=== PATIENT | female | born 1980 | race Caucasian/White ===

== ENCOUNTER 2019-01-25 23:47 | Emergency (ER) | payer BC, SELFPAY ==
[2019-01-26] MEDS ORDERED: KETOROLAC 30 MG/ML INJ ONE (00:42)
--- NOTE | 2019-01-26 01:17 | EDPHYS ---
Physician Documentation [facility] Name: Miguelina Coffman Age: 38 yrs Sex: Female : 1980 Arrival Date: 01/25/2019 Time: 23:52 Bed 7 Private MD: ED Physician Kofi Blackwood HPI: 01/26 01:15 This 38 yrs old Female presents to ER via Ambulatory with complaints of gs Abdominal Pain. 01:15 The patient presents with abdominal pain in the lower abdomen. Onset: The gs symptoms/episode began/occurred acutely, just prior to arrival. Associated signs and symptoms: Pertinent negatives: nausea, vomiting. The symptoms are described as sharp. Severity of pain: At its worst the pain was severe in the emergency department the pain is unchanged. pulled her up by her legs and felt pull in her lower abdomen. 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 - Social history:: Smoking status: Patient/guardian denies using tobacco. - Ebola Screening: : Patient negative for fever greater than or equal to 101.5 degrees Fahrenheit, and additional compatible Ebola Virus Disease symptoms Patient denies exposure to infectious person Patient denies travel to an Ebola-affected area in the 21 days before illness onset No symptoms or risks identified at this time. ROS: 01/26 01:15 All other systems are negative. gs Exam: 01:15 Head/Face: Normocephalic, atraumatic. Eyes: Pupils equal round and reactive to light, gs extra-ocular motions intact. Lids and lashes normal. Conjunctiva and sclera are non-icteric and not injected. Cornea within normal limits. Periorbital areas with no swelling, redness, or edema. ENT: Nares patent. No nasal discharge, no septal abnormalities noted. Tympanic membranes are normal and external auditory canals are clear. Oropharynx with no redness, swelling, or masses, exudates, or evidence of obstruction, uvula midline. Mucous membranes moist. Neck: Trachea midline, no thyromegaly or masses palpated, and no cervical lymphadenopathy. Supple, full range of motion without nuchal rigidity, or vertebral point tenderness. No Meningismus. Chest/axilla: Normal chest wall appearance and motion. Nontender with no deformity. No lesions are appreciated. Cardiovascular: Regular rate and rhythm with a normal S1 and S2. No gallops, murmurs, or rubs. Normal PMI, no JVD. No pulse deficits. Respiratory: Lungs have equal breath sounds bilaterally, clear to auscultation and percussion. No rales, rhonchi or wheezes noted. No increased work of breathing, no retractions or nasal flaring. Back: No spinal tenderness. No costovertebral tenderness. Full range of motion. Skin: Warm, dry with normal turgor. Normal color with no rashes, no lesions, and no evidence of cellulitis. MS/ Extremity: Pulses equal, no cyanosis. Neurovascular intact. Full, normal range of motion. Neuro: Awake and alert, GCS 15, oriented to person, place, time, and situation. Cranial nerves II-XII grossly intact. Motor strength 5/5 in all extremities. Sensory grossly intact. Cerebellar exam normal. Normal gait. 01:15 Constitutional: The patient appears alert, awake, uncomfortable. 01:15 Abdomen/GI: Palpation: moderate abdominal tenderness, in the right lower quadrant and left lower quadrant, rebound tenderness, is not appreciated. Vital Signs: 01/25 23:58 BP 118 / 80; Pulse 71; Resp 18; Temp 97.8; Pulse Ox 97% on R/A; Weight 63.96 kg; Height ed1 5 ft. 0 in. (152.40 cm); Pain 8/10; 01/26 00:30 BP 111 / 74; Pulse 73; Resp 16; Pulse Ox 97% on R/A; lp1 01:37 BP 111 / 67; Pulse 60; Resp 16; Pulse Ox 99% on R/A; Pain 3/10; lp1 01/25 23:58 Body Mass Index 27.54 (63.96 kg, 152.40 cm) ed1 MDM: 00:19 Patient medically screened. gs 01:15 Data reviewed: vital signs, nurses notes. Response to treatment: the patient's symptoms gs have markedly improved after treatment, and as a result, I will discharge patient. Administered Medications: 00:34 Drug: TORadol 30 mg Route: IM; Site: right gluteus; ao 01:38 Follow up: Response: Pain is decreased lp1 Disposition: 01/26/19 01:16 Discharged to Home. Impression: Contusion of abdominal wall. - Condition is Stable. - Discharge Instructions: Contusion. - Medication Reconciliation Form, Thank You Letter, Antibiotic Education, Prescription Opioid Use form. - Follow up: Private Physician; When: 2 - 3 days; Reason: Re-evaluation by your physician. Signatures: Maryse Valdes RN RN ed1 Jhoana Clinton RN RN lp1 Juan Diego Rosas RN RN ao Kofi Blackwood MD MD gs Corrections: (The following items were deleted from the chart) 01:38 01:16 01/26/2019 01:16 Discharged to Home. Impression: Contusion of abdominal wall. lp1 Condition is Stable. Forms are Medication Reconciliation Form, Thank You Letter, Antibiotic Education, Prescription Opioid Use. Follow up: Private Physician; When: 2 - 3 days; Reason: Re-evaluation by your physician. gs
--- NOTE | 2019-01-26 01:17 | ER ---
Nurse's Notes [facility] [place], [place] Name: Miguelina Coffman Age: 38 yrs Sex: Female : 1980 Arrival Date: 01/25/2019 Time: 23:52 Bed 7 Private MD: Diagnosis: Contusion of abdominal wall Presentation: 01/25 23:56 Presenting complaint: Patient states: My and I were playing on the bed and he ed1 yanked me up by my feet and I felt something in my stomach pop and now it really hurts. I just had a tubal ligation 6 weeks ago. Transition of care: patient was not received from another setting of care. Onset of symptoms was January 25, 2019. Risk Assessment: Do you want to hurt yourself or someone else? Patient reports no desire to harm self or others. Initial Sepsis Screen: Does the patient meet any 2 criteria? No. Patient's initial sepsis screen is negative. Does the patient have a suspected source of infection? No. Patient's initial sepsis screen is negative. Care prior to arrival: None. 23:56 Method Of Arrival: Ambulatory ed1 23:56 Acuity: TIM 3 ed1 Triage Assessment: 23:58 General: Appears uncomfortable, Behavior is calm, cooperative. Pain: Complains of pain ed1 in right lower quadrant Pain currently is 8 out of 10 on a pain scale. GI: Abdomen is non-distended, Bowel sounds present X 4 quads. Abd is soft X 4 quads Abdomen is tender to palpation in right lower quadrant. 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 - Social history:: Smoking status: Patient/guardian denies using tobacco. - Ebola Screening: : Patient negative for fever greater than or equal to 101.5 degrees Fahrenheit, and additional compatible Ebola Virus Disease symptoms Patient denies exposure to infectious person Patient denies travel to an Ebola-affected area in the 21 days before illness onset No symptoms or risks identified at this time. Screenin/24 00:27 Abuse screen: Denies threats or abuse. Denies injuries from another. Nutritional ao screening: No deficits noted. Tuberculosis screening: No symptoms or risk factors identified. Fall Risk None identified. Assessment: 00:23 General: Appears in no apparent distress. comfortable, Behavior is calm, cooperative, ao appropriate for age. Pain: Complains of pain in right lower quadrant Pain currently is 8 out of 10 on a pain scale. Quality of pain is described as stabbing. Neuro: Level of Consciousness is awake, alert, Oriented to person, place, time, situation, Appropriate for age Moves all extremities. Full function Speech is normal, Facial symmetry appears normal, Pupils are PERRLA. Cardiovascular: Capillary refill < 3 seconds Patient's skin is warm and dry. Respiratory: Airway is patent Respiratory effort is even, unlabored, Respiratory pattern is regular, symmetrical. GI: Abdomen is round obese. GI: Bowel sounds present X 4 quads. Abd is soft and non tender X 4 quads. : No signs and/or symptoms were reported regarding the genitourinary system. EENT: No signs and/or symptoms were reported regarding the EENT system. Derm: Skin is intact, Skin is pink, warm \T\ dry. normal, Skin temperature is warm. Musculoskeletal: Range of motion: intact in all extremities. 01:37 Reassessment: Patient is alert, oriented x 3, equal unlabored respirations, skin lp1 warm/dry/pink. Patient states feeling better. Patient states symptoms have improved. Vital Signs: 01/25 23:58 BP 118 / 80; Pulse 71; Resp 18; Temp 97.8; Pulse Ox 97% on R/A; Weight 63.96 kg; Height ed1 5 ft. 0 in. (152.40 cm); Pain 8/10; 01/26 00:30 BP 111 / 74; Pulse 73; Resp 16; Pulse Ox 97% on R/A; lp1 01:37 BP 111 / 67; Pulse 60; Resp 16; Pulse Ox 99% on R/A; Pain 3/10; lp1 01/25 23:58 Body Mass Index 27.54 (63.96 kg, 152.40 cm) ed1 ED Course: 01/25 23:52 Patient arrived in ED. es 23:57 Triage completed. ed1 23:58 Arm band placed on. ed1 01/26 00:00 Kofi Blackwood MD is Attending Physician. gs 00:19 Juan Diego Rosas, RN is Primary Nurse. ao 00:27 Patient has correct armband on for positive identification. Pulse ox on. NIBP on. ao 01:37 No provider procedures requiring assistance completed. Patient did not have IV access lp1 during this emergency room visit. Administered Medications: 00:34 Drug: TORadol 30 mg Route: IM; Site: right gluteus; ao 01:38 Follow up: Response: Pain is decreased lp1 Outcome: 01:16 Discharge ordered by . gs 01:37 Discharged to home ambulatory, with friend. lp1 01:37 Condition: good 01:37 Discharge instructions given to patient, Instructed on discharge instructions, follow up and referral plans. Demonstrated understanding of instructions, follow-up care. 01:38 Patient left the ED. lp1 Signatures: Esperanza Arana Erika RN RN ed1 Jhoana Clinton RN RN lp1 Juan Diego Rosas, RN RN ao Kofi Blackwood MD MD
== END 2019-01-26 01:38 | disposition home or self-care (01) ==
LOC: ER 23:47
DX: S30.1XXA Contusion of abdominal wall, initial encounter (principal); X58.XXXA Exposure to other specified factors, initial encounter; Y93.9 Activity, unspecified; Y92.9 Unspecified place or not applicable
CPT/HCPCS: 96372; 99283

== ENCOUNTER 2021-06-10 14:22 | Emergency (ER) | payer BC ==
[2021-06-10 15:29] LABS: Absolute Lymphocytes (CBC) 2.2 K/uL (0.7-4.9); Basophils % 0.6 % (0-1.3); Hematocrit 42.4 % (36.0-45.0); Lymphocytes % 19.3 % (15.3-44.8)
[2021-06-10 15:49] LABS: Albumin 4.5 g/dL (3.4-5.0); Bilirubin Direct 0.1 mg/dL (0-0.2); Bilirubin Total 0.5 mg/dL (0.2-1.0); Potassium 4.1 mmol/L (3.5-5.1); Protein, Total 8.1 g/dL (6.4-8.2)
[2021-06-10 15:53] LABS: Urine Blood Trace-intact (Negative); Urine Glucose Negative (Negative); Urine Protein Negative (Negative); Urine Specific Gravity >=1.030 (1.005-1.030)
[2021-06-10 16:32] LABS: Urine Bacteria <20 /HPF (<20); Urine RBC <5 /HPF (NONE SEEN)
--- NOTE | 2021-06-10 16:47 | RAD REPORT ---
EXAM DESCRIPTION: CTAbdomen Pelvis W Contrast - 06/10/2021 4:30 pm CLINICAL HISTORY: Abdominal pain. ABD PAIN COMPARISON: No comparisons TECHNIQUE: Biphasic CT imaging of the abdomen and pelvis was performed with 100 ml non-ionic IV cont rast. All CT scans are performed using dose optimization technique as appropriate and may include automated exposure control or mA/KV adjustment according to patient size. FINDINGS: The lung bases are clear. The liver, spleen, pancreas, adrenal glands and kidneys are within normal limits. No bowel obstruction, free air, free fluid or abscess. The appendix is normal. Fluid filled large an d small bowel loops are noted. No evidence of significant lymphadenopathy. No suspicious bony findings. IMPRESSION: Fluid-filled small and large bowel loops present which could indicate a nonspecific mild enteritis/colitis. Otherwise, negative study.
--- NOTE | 2021-06-10 17:04 | ER ---
Nurse's Notes [facility] Name: Miguelina Coffman Age: 41 yrs Sex: Female : 1980 Arrival Date: 06/10/2021 Time: 14:25 Bed DIS2 Private MD: Diagnosis: Lower abdominal pain, unspecified Presentation: 06/10 15:04 Chief complaint: Patient states: Lower abdominal pain, radiates to lower back, reports jl7 nausea, denies V/D, reports epigastric burning since this morning, Also reports urinary frequency and suprapubic pressure with urination. Coronavirus screen: At this time, the client does not indicate any symptoms associated with coronavirus-19. Ebola Screen: No symptoms or risks identified at this time. Initial Sepsis Screen: Does the patient meet any 2 criteria? No. Patient's initial sepsis screen is negative. Does the patient have a suspected source of infection? No. Patient's initial sepsis screen is negative. Risk Assessment: Do you want to hurt yourself or someone else? Patient reports no desire to harm self or others. Onset of symptoms was June 10, 2021. 15:04 Method Of Arrival: Ambulatory 7 15:04 Acuity: TIM 3 jl7 Triage Assessment: 15:07 General: Appears in no apparent distress. uncomfortable, Behavior is calm, cooperative, jl7 appropriate for age. Pain: Complains of pain in right lower quadrant and left lower quadrant Pain radiates to low back area Pain currently is 8 out of 10 on a pain scale. Neuro: Level of Consciousness is awake, alert, obeys commands, Oriented to person, place, time, situation. Cardiovascular: Patient's skin is warm and dry. Respiratory: Airway is patent Respiratory effort is even, unlabored, Respiratory pattern is regular, symmetrical. GI: Reports lower abdominal pain, nausea, Patient currently denies diarrhea, vomiting. : Reports urinary frequency. Derm: Skin is pink, warm \T\ dry. 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 - Social history:: Smoking status: Patient denies any tobacco usage or history of. Screenin:17 Abuse screen: Denies threats or abuse. Denies injuries from another. Nutritional jl7 screening: No deficits noted. Tuberculosis screening: No symptoms or risk factors identified. Fall Risk IV access (20 points). Total [place] Fall Scale indicates No Risk (0-24 pts). Assessment: 15:17 Reassessment: ABIMAEL Gallagher in triage assessing pt. jl7 16:41 General: Appears in no apparent distress. comfortable, Behavior is calm, cooperative, ld1 appropriate for age. Pain: Complains of pain in right lower quadrant Pain radiates to left lower quadrant Pain currently is 6 out of 10 on a pain scale. Quality of pain is described as throbbing, Pain began 1 day ago. Is intermittent. Neuro: Level of Consciousness is awake, alert, obeys commands, Oriented to person, place, time, situation. Cardiovascular: Capillary refill < 3 seconds Patient's skin is warm and dry. Respiratory: Airway is patent Respiratory effort is even, unlabored, Respiratory pattern is regular, symmetrical. GI: Abdomen is flat, non-distended. : No signs and/or symptoms were reported regarding the genitourinary system. EENT: No signs and/or symptoms were reported regarding the EENT system. Derm: No signs and/or symptoms reported regarding the dermatologic system. Musculoskeletal: No signs and/or symptoms reported regarding the musculoskeletal system. Vital Signs: 15:04 BP 125 / 79; Pulse 82; Resp 19; Temp 98.4; Pulse Ox 98% ; Weight 63.5 kg; Height 5 ft. jl7 0 in. (152.40 cm); Pain 8/10; 16:41 BP 130 / 77; Pulse 80; Resp 18; Pulse Ox 100% ; ld1 15:04 Body Mass Index 27.34 (63.50 kg, 152.40 cm) jl7 ED Course: 14:25 Patient arrived in ED. as 15:07 Triage completed. jl7 15:07 Arm band placed on right wrist. jl7 15:17 Patient has correct armband on for positive identification. jl7 15:20 Initial lab(s) drawn, by ED staff, sent to lab. Inserted saline lock: 20 gauge in right jl7 antecubital area, using aseptic technique. Blood collected. 15:24 Elliott Simmons PA is PHCP. jr8 15:24 Gilbert Jamison MD is Attending Physician. jr8 16:30 CT Abd/Pelvis - IV Contrast Only In Process Unspecified. EDMS 16:41 No provider procedures requiring assistance completed. ld1 17:03 Rita Emery MD is Referral Physician. jr8 17:16 Akiko Murrell, RN is Primary Nurse. iw Administered Medications: No medications were administered Outcome: 17:03 Discharge ordered by . jr8 17:16 Patient left the ED. iw Signatures: Dispatcher [employer] EDMS Chiara Simmons as Akiko Murrell, OMID RN iw Elliott Simmons PA PA jr8 Elfego Lind RN RN jl7 Sarah Witt RN RN ld1 Corrections: (The following items were deleted from the chart) 15:10 15:04 Chief complaint: Patient states: Lower abdominal pain, radiates to lower back, jl7 reports nausea, denies V/D, reports epigastric burning since this morning jl7 15:20 15:07 LMP N/A - control method jl7 jl7
--- NOTE | 2021-06-10 17:04 | EDPHYS ---
Physician Documentation [facility] Name: Miguelina Coffman Age: 41 yrs Sex: Female : 1980 Arrival Date: 06/10/2021 Time: 14:25 Bed DIS2 Private MD: ELPIDIO Physician Gilbert Jamison HPI: 06/10 15:24 This 41 yrs old Female presents to ER via Ambulatory with complaints of Lower jr8 Abdominal Pain. 15:24 This is a 41-year-old female patient that presented to the emergency room with lower jr8 abdominal pain on the right side radiating to the back and left side. Patient stated that she is also had frequency. Symptoms started today. Denies any vomiting or diarrhea. Denies fevers at this time. Had just recently finished her menstrual cycle.. 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 - Social history:: Smoking status: Patient denies any tobacco usage or history of. ROS: 15:24 Constitutional: Negative for fever, chills, and weight loss. jr8 15:24 Abdomen/GI: Positive for abdominal pain, nausea, Negative for vomiting, diarrhea, constipation, abdominal cramps, abdominal distension. 15:24 : Positive for urinary symptoms, urinary frequency. 15:24 All other systems are negative. Exam: 15:24 Constitutional: This is a well developed, well nourished patient who is awake, alert, jr8 and in no acute distress. Cardiovascular: Regular rate and rhythm with a normal S1 and S2. No gallops, murmurs, or rubs. Normal PMI, no JVD. No pulse deficits. Respiratory: Lungs have equal breath sounds bilaterally, clear to auscultation and percussion. No rales, rhonchi or wheezes noted. No increased work of breathing, no retractions or nasal flaring. Back: No spinal tenderness. No costovertebral tenderness. Full range of motion. Skin: Warm, dry with normal turgor. Normal color with no rashes, no lesions, and no evidence of cellulitis. MS/ Extremity: Pulses equal, no cyanosis. Neurovascular intact. Full, normal range of motion. Neuro: Awake and alert, GCS 15, oriented to person, place, time, and situation. Cranial nerves II-XII grossly intact. Motor strength 5/5 in all extremities. Sensory grossly intact. 15:24 Abdomen/GI: Inspection: abdomen appears normal, Bowel sounds: active, all quadrants, Palpation: soft, in all quadrants, mild abdominal tenderness, in the suprapubic area and right lower quadrant, mass, is not appreciated, rebound tenderness, is not appreciated, voluntary guarding, is not appreciated, involuntary guarding, is not appreciated, no appreciated organomegaly, Indicators: McBurney's point is not tender, Solorzano's sign is negative, Rovsing's sign is negative, Liver: tenderness, is not appreciated. Vital Signs: 15:04 BP 125 / 79; Pulse 82; Resp 19; Temp 98.4; Pulse Ox 98% ; Weight 63.5 kg; Height 5 ft. jl7 0 in. (152.40 cm); Pain 8/10; 16:41 BP 130 / 77; Pulse 80; Resp 18; Pulse Ox 100% ; ld1 15:04 Body Mass Index 27.34 (63.50 kg, 152.40 cm) jl7 MDM: 16:02 Patient medically screened. jr8 17:01 Data reviewed: vital signs, nurses notes, lab test result(s), radiologic studies, CT jr8 scan. Data interpreted: Pulse oximetry: on room air is 100 %. Interpretation: normal. Counseling: I had a detailed discussion with the patient and/or guardian regarding: the historical points, exam findings, and any diagnostic results supporting the discharge/admit diagnosis, lab results, radiology results, the need for outpatient follow up, a family practitioner, a master [employer], to return to the emergency department if symptoms worsen or persist or if there are any questions or concerns that arise at home. ED course: Discussed with patient that labs not show any concerning finding at this time. CT had nonspecific small and large bowel dilated loops. Could be consistent with a enteritis or mild colitis. Patient has not had any diarrhea or bloody stools. Patient denies any fever has been hemodynamically stable and afebrile here. Recommended to her that we put her on some nausea medicine and some Bentyl at this time and to give it a few more days. If she were to worsen at any point time or have other symptom involvement come back for reevaluation. Otherwise would like her to see gastroenterology at this time. Patient good with this plan and will follow up.. 06/10 15:15 Order name: Basic Metabolic Panel; Complete Time: 16:02 7 06/10 15:15 Order name: CBC with Diff; Complete Time: 16:02 7 06/10 15:15 Order name: Hepatic Function; Complete Time: 16:02 7 06/10 15:15 Order name: Lipase; Complete Time: 16:02 7 06/10 15:15 Order name: Urine Microscopic Only; Complete Time: 16:51 7 06/10 15:53 Order name: Urine Dipstick-Ancillary; Complete Time: 16:02 EDMS 06/10 15:15 Order name: IV Saline Lock; Complete Time: 15:16 7 06/10 15:15 Order name: Labs collected and sent; Complete Time: 15:16 7 06/10 15:15 Order name: Urine Dipstick-Ancillary (obtain specimen); Complete Time: 16:05 [facility] 06/10 15:54 Order name: Urine --Ancillary (enter results) bd 06/10 16:03 Order name: CT Abd/Pelvis - IV Contrast Only; Complete Time: 16:51 jr8 Administered Medications: No medications were administered Disposition: 06/11 07:51 Co-signature as Attending Physician, Gilbert Jamison MD I agree with the assessment and alex plan of care. Disposition Summary: 06/10/21 17:03 Discharge Ordered Location: Home jr Problem: new jr8 Symptoms: have improved jr8 Condition: Stable jr8 Diagnosis - Lower abdominal pain, unspecified jr8 Followup: jr8 - With: Rita Emery MD - When: 5 - 6 days - Reason: Recheck today's complaints, Continuance of care, Re-evaluation by your physician Discharge Instructions: - Discharge Summary Sheet jr8 - Abdominal Pain, Adult jr8 Forms: - Medication Reconciliation Form jr8 - Thank You Letter jr8 - Antibiotic Education jr8 - Prescription Opioid Use jr8 Prescriptions: - Zofran 4 mg Oral Tablet - take 1 tablet by ORAL route every 12 hours As needed; 20 tablet; Refills: 0, jr8 Product Selection Permitted - dicyclomine 20 mg Oral Tablet - take 1 tablet by ORAL route 3 times per day As needed; 21 tablet; Refills: 0, jr8 Product Selection Permitted Signatures: Dispatcher [employer] Gilbert Huffman MD MD cha Roszak, Josh, PA PA jr8 Elfego Lind RN RN jl7
[2021-06-10 17:20] VITALS: TEMP 98.4
[2021-06-10 17:22] VITALS: BP 130/77; O2SAT 100
== END 2021-06-10 17:16 | disposition home or self-care (01) ==
LOC: ER 14:22
DX: R10.31 Right lower quadrant pain (principal)
CPT/HCPCS: 85025; 80048; 36415; 81025; 80076; 83690; 74177; 99283; Q9967; 81003; 81015

== ENCOUNTER 2022-01-25 16:40 | Emergency (ER) | payer BC, SELFPAY ==
--- OUTSIDE RECORDS SUMMARY | 2022-01-25 16:43 | XMS REPORT | Continuity of Care Document ---
:1980 Author Organization [facility] t Address [address] [place] [address] Care Team Providers Name Role Phone LANEDiamond Primary Care Physician Unavailable Tomás MCKEON S Attending Clinician Lanny SOW Attending Clinician Unavailable Doctor Unassigned, Name Attending Clinician Unavailable Lab, Fam Pob I Attending Clinician Unavailable Nila EMBEDDED SOFTWARE DESIGN ENGINEER Attending Clinician NILA Attending Clinician Unavailable Lab, Covid Attending Clinician Unavailable Payers Payer Name Policy Type Policy Number Effective Date Expiration Date S ource Problems Condition Condition Condition Status Onset Resolution Last Treating Co mments Source Name Details Category Date Date Treatment Clinician Date 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 Unive rs glandular glandular 0-15 ity [place] Med[place] of cervix of cervix Bran ch BMI BMI Disease Active 2017-09 Univers 25.0-25.9, 25.0-25.9, 0-15 it y of adult adult 00:00: [place] 00 Medical Branch Encounter Encounter Disease Active 2017-09 Uni vers for for 0-15 [place] maxim [place] 00 Medical management management Br anch , , unspecifie unspecifie d type d type Papanicola Papanicola Disease Active U nivers ou smear ou smear 6-29 [place] of [place] 00 Med[place] l grade 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 [place] Alcohol Std Drinks Medica l Branch History [facility] [place] Alcohol Binge Medical [facility] Exposure to Not sure [facility] SARS-CoV-2 (event) Medica l Branch Alcohol intake 2018-06-19 2018-06-19 0 /d [facility] 00:00:00 00:00:00 Medical Branch Tobacco use and 2016-03-03 2016-03-03 Never used [facility] exposure 00:00:00 00:00:00 Medical Branch Alcohol Comment 2016-03-03 2016-03-03 socially [facility] 00:00:00 00:00:00 Medical Branch Sex Ass[birth year] At [birth year] [facility] 00:00:00 00:00:00 Medical Branch Smoking Status Start Date Stop Date Source Never smoker [facility] Medications Ordered Filled Start Stop Current Ordering Indication Dosage Frequency Signature Comments Components Source Medication Medication Date Date Medication? Clinician (SIG) Name Name levoFLOXaci Yes [id number] 500mg Take 1 Univers n 1-09 tablet by ity of (LEVAQUIN) 00:00: mouth [place] 500 mg 00 every 24 Medical tablet (twenty-fo Branch ur) hours. ibuprofen Yes [id number] 800mg Take 1 U nivers 800 mg 1-09 tablet by ity of tablet 00:00: mouth [place] 00 every 8 Medical (eight) Branch hours as needed for Pain (scale 4-6). phenazopyri Yes [id number] 200mg Take 1 Univers dine 200 mg 1-09 tablet by ity of tablet 00:00: mouth 3 [place] 00 (three) Medical times Branch daily. PROTONIX 40 Yes 40mg Take 40 mg Univers mg 5-14 by mouth [place] of delayed-rel [place] ease [place] Medical suspension Branch PROTONIX 40 Yes 40mg Take 40 mg Univers mg 5-14 by mouth [place] of delayed[place]rel [place] suspension Branch PROTONIX 40 2017-0 Yes 40mg Take 40 mg Univers mg 5-14 by mouth ity of delayed-rel 00:00: daily. Milvia colvin Medical suspension Branch PROTONIX 40 2016-0 Yes 40mg Take 40 mg Univers mg 5-14 by mouth ity of delayed-rel 00:00: daily. Milvia colvin Medical suspension Branch Vital Signs Vital Name Observation Time Observation Value Comments Source Systolic blood 2021-09-13 18:46:00 123 mm[Hg] [facility] Diastolic blood 2021-09-13 18:46:00 80 mm[Hg] [facility] 2021-09-13 18:46:00 93 /min [facility] Body temperature 2021-09-13 18:46:00 37.17 Viv [facility] Respiratory rate 2021-09-13 18:46:00 18 /min [facility] Body weight 2021-09-13 18:46:00 63.504 kg [facility] BMI 2021-09-13 18:46:00 25.61 kg/m2 [facility] Oxygen saturation in 2021-09-13 18:46:00 99 /min [facility] blood by [facility] Pulse oximetry [place] Procedures Procedure Date / Time Performed Performing Clinician Sour e POCT TEST 2021-09-13 19:59:00 Elvia Sow [facility] URINALYSIS 2021-09-13 19:56:00 Elvia Sow [facility] [place] [facility] NOTICE OF PRIVACY 2021-09-13 18:11:31 Doctor Unassigned, No Univ [facility] CONSENT/REFUSAL FOR 2021-09-13 18:11:13 Doctor Unassigned, [facility] Medical [place] TREATMENT Encounters Start End Encounter Admission Attending Care Care Encounter Source Date/Time Date/Time Type Type Clinicians Facility Department ID 2021-09-13 2021-09-13 Emergency Pitawiromero [facility] [id number] [facility] 12:49:00 16:14:00 Elvia TEIXEIRA [id number] ity of [facility] [id number] [id number] [facility] [address] [place] 2021-09-13 2021-09-13 Emergency X TOMÁS [facility] ERT [id number] Univers 12:49:00 16:14:[address] [facility] 2021-09-13 2021-09-13 Orders Doctor DAVID [id number] Univers 00:00:00 00:00:00 Only Unassigned, JANINE [id number] ity of [place] [facility] [id number] [place] as [phone] [facility] [address] [place] 2020-03-20 2020-03-20 Laboratory Lab, Adc Fam Pob I [facility] [id number] Univers 15:49:56 16:09:56 Only [facility] [id number] ity of [place] [id number] [place] as Professio [phone] [address] 2020-03-20 2020-03-20 Outpatient R [facility] [id number] Univers 15:40:00 15:40:00 [id number] ity [facility] 2020-03-20 2020-03-20 Outpatient R NILA [facility] [id number] Univers 15:40:00 15:40:00 YESSENIA ity [facility] [place] [facility] 2020-03-20 2020-03-20 Letter Lab, Pcp [facility] [id number] Univers 00:00:00 00:00:00 (Out) [facility] [id number] it y of [place] [id number] [place] Professio [phone] [place] dical nal [address] Results Test Description Test Time Test Comments Results Result Comments Source POCT TEST 2021-09-13 19:59:00 Test Item Value Reference Range Interpretation Comme nts POCT PREG (test code = 1605) negative On board controls acceptable with C Line (test code = 3574) present POCT PREG LOT # (test code = 3575) [id number] POCT PREG TEST DATE (test code = 3576) Lab Interpretation (test code = 87030-3) [facility]
[2022-01-25] MEDS ORDERED: IBUPROFEN 400 MG TAB ONE (17:51)
--- NOTE | 2022-01-25 19:59 | RAD REPORT ---
EXAM DESCRIPTION: RAD - Chest Single View - 01/25/2022 6:55 pm CLINICAL HISTORY: COUGH COMPARISON: None TECHNIQUE: AP portable chest image was obtained 01/25/2022 6:55 pm . FINDINGS: Lungs are clear. Heart and vasculature are normal. No measurable pleural effusion and no p neumothorax. No acute bony abnormality seen. No acute aortic findings suspected. IMPRESSION: No acute cardiopulmonary process.
--- NOTE | 2022-01-25 20:26 | EDPHYS ---
Physician Documentation [facility] Name: Miguelina Coffman Age: 41 yrs Sex: Female : 1980 Arrival Date: 01/25/2022 Time: 16:47 Bed 11 Private MD: Yudelka Johnston C ED Physician Rupesh Zimmer HPI: 01/25 17:08 This 41 yrs old Female presents to ER via Ambulatory with complaints of bodyaches, ms3 bronchitis. 17:08 The patient or guardian reports cough, Bodyaches. Onset: The symptoms/episode ms3 began/occurred 1 week(s) ago. Severity of symptoms: At their worst the symptoms were severe, a " 9" out of "10", in the emergency department the symptoms are unchanged. Modifying factors: The symptoms are alleviated by nothing, the symptoms are aggravated by nothing. Associated signs and symptoms: The patient has no apparent associated signs or symptoms. KNIFER UP: 16:57 LMP 01/04/2022 jd3 Historical: - Allergies: 16:56 No Known Allergies; jd3 - Home Meds: 16:56 None [Active]; jd3 - PMHx: 16:56 None; jd3 - PSHx: 16:56 Ligation of fallopian tube; jd3 - Immunization history:: Adult Immunizations up to date, Client reports having NOT received the Covid vaccine. Flu vaccine is not up to date. - Social history:: Smoking status: Patient denies any tobacco usage or history of. ROS: 17:08 Eyes: Negative for injury, pain, redness, and discharge, Neck: Negative for injury, ms3 pain, and swelling, Cardiovascular: Negative for chest pain, and palpitations. Abdomen/GI: Negative for abdominal pain, nausea, vomiting, diarrhea, and constipation, MS/Extremity: Negative for injury and deformity, Neuro: Negative for headache, weakness, numbness, tingling. 17:08 Constitutional: Positive for body aches. 17:08 Respiratory: Positive for cough. 17:08 All other systems are negative. Exam: 17:08 Constitutional: This is a well developed, well nourished patient who is awake, alert, ms3 and in no acute distress. Head/Face: Normocephalic, atraumatic. Neck: Trachea midline, no cervical lymphadenopathy. Supple, full range of motion without nuchal rigidity, or vertebral point tenderness. No Meningismus. Chest/axilla: Normal chest wall appearance and motion. Nontender with no deformity. Cardiovascular: Regular rate and rhythm with a normal S1 and S2. No gallops, murmurs, or rubs. Normal PMI, no JVD. No pulse deficits. Respiratory: Lungs have equal breath sounds bilaterally, clear to auscultation and percussion. No rales, rhonchi or wheezes noted. No increased work of breathing, no retractions or nasal flaring. Abdomen/GI: Soft, non-tender, with normal bowel sounds. No distension or tympany. No guarding or rebound. No evidence of tenderness throughout. Skin: Warm, dry with normal turgor. Normal color with no rashes, no lesions, and no evidence of cellulitis. Vital Signs: 16:57 BP 99 / 69; Pulse 84; Resp 19 S; Temp 98.8(TE); Pulse Ox 99% on R/A; Weight 62.14 kg jd3 (R); Height 5 ft. 0 in. (152.40 cm) (R); Pain 9/10; 16:57 Body Mass Index 26.76 (62.14 kg, 152.40 cm) jd3 MDM: 17:08 Differential Diagnosis: Bronchitis Influenza Upper Respiratory Infection Other COVID. ms3 17:46 Patient medically screened. ms3 18:59 Transition of care: After a detail discussion of the patient's case, care is ms3 transferred to Rupesh Zimmer MD. 21:46 Data reviewed: vital signs, nurses notes, lab test result(s), radiologic studies. kdr Counseling: I had a detailed discussion with the patient and/or guardian regarding: the historical points, exam findings, and any diagnostic results supporting the discharge/admit diagnosis, lab results, radiology results, the need for outpatient follow up. 01/25 16:58 Order name: Flu; Complete Time: 18:50 jd3 01/25 16:58 Order name: SARS-COV-2 RT PCR (Document "Date of Onset" if Symptomatic); Complete Time: jd3 20:10 01/25 17:08 Order name: CXR XRAY; Complete Time: 20:10 ms3 Administered Medications: 17:52 Drug: Ibuprofen 400 mg Route: PO; 20:50 Follow up: Response: No adverse reaction lp1 Disposition Summary: 01/25/22 20:25 Discharge Ordered Location: Home kdr Problem: new kdr Symptoms: are unchanged kdr Condition: Stable kdr Diagnosis - SARS-associated coronavirus as the cause of diseases classified elsewhere kdr - Cough kdr Followup: kdr - With: Private Physician - When: 2 - 3 days - Reason: If symptoms return, Further diagnostic work-up, Recheck today's complaints, Continuance of care, Re-evaluation by your physician Discharge Instructions: - Discharge Summary Sheet kdr - COVID-19 kdr - 10 Things You Can Do to Manage Your COVID-19 Symptoms at Home - [facility] kdr - COVID-19: Quarantine vs. Isolation - [facility] kdr Forms: - Medication Reconciliation Form kdr - Thank You Letter kdr - Work release form lp1 Signatures: Dispatcher [employer] Rupesh Arreguin MD MD kdr Tamir Carmona RN RN jd3 Alessandro Fitzgerald DO DO ms3 Noa Chacon RN RN ww Jhoana Clinton RN lp1
--- NOTE | 2022-01-25 20:26 | ER ---
Nurse's Notes [facility] Name: Miguelina Coffman Age: 41 yrs Sex: Female : 1980 Arrival Date: 01/25/2022 Time: 16:47 Bed 11 Private MD: Yudelka Johnston C Diagnosis: SARS-associated coronavirus as the cause of diseases classified elsewhere;Cough Presentation: 01/25 16:54 Chief complaint: Patient states: "I am hurting all over. I went to the Dr last week and jd3 I was told I have bronchitis. i took my medicine and I feel like I am just getting worse.". Coronavirus screen: cough unrelated to allergies, difficulty breathing, muscle pain, sore throat. Ebola Screen: No symptoms or risks identified at this time. Initial Sepsis Screen: Does the patient meet any 2 criteria? No. Patient's initial sepsis screen is negative. Does the patient have a suspected source of infection? No. Patient's initial sepsis screen is negative. Risk Assessment: Do you want to hurt yourself or someone else? Patient reports no desire to harm self or others. Onset of symptoms was January 18, 2022. 16:54 Method Of Arrival: Ambulatory [facility] 16:54 Acuity: TIM 3 jd3 TELEPHONE ANSWERER: 16:57 LMP 01/04/2022 j Historical: - Allergies: 16:56 No Known Allergies; jd3 - Home Meds: 16:56 None [Active]; jd3 - PMHx: 16:56 None; jd3 - PSHx: 16:56 Ligation of fallopian tube; jd3 - Immunization history:: Adult Immunizations up to date, Client reports having NOT received the Covid vaccine. Flu vaccine is not up to date. - Social history:: Smoking status: Patient denies any tobacco usage or history of. Screenin:45 Abuse screen: Denies threats or abuse. Denies injuries from another. Nutritional lp1 screening: No deficits noted. Tuberculosis screening: No symptoms or risk factors identified. Fall Risk None identified. Assessment: 20:45 General: Appears in no apparent distress. Behavior is calm, cooperative, appropriate lp1 for age. Pain: Denies pain. Neuro: Level of Consciousness is awake, alert, obeys commands. Cardiovascular: Patient's skin is warm and dry. Respiratory: Respiratory effort is even, unlabored, Parent/caregiver reports the patient having cough that is persistent. GI: No signs and/or symptoms were reported involving the gastrointestinal system. : No signs and/or symptoms were reported regarding the genitourinary system. EENT: No signs and/or symptoms were reported regarding the EENT system. Derm: Skin is pink, warm \\T\\ dry. Musculoskeletal: No deficits noted. Vital Signs: 16:57 BP 99 / 69; Pulse 84; Resp 19 S; Temp 98.8(TE); Pulse Ox 99% on R/A; Weight 62.14 kg jd3 (R); Height 5 ft. 0 in. (152.40 cm) (R); Pain 9/10; 16:57 Body Mass Index 26.76 (62.14 kg, 152.40 cm) jd3 ED Course: 16:47 Patient arrived in ED. am2 16:47 Yudelka Johnston FNP is Private Physician. am2 16:56 Triage completed. jd3 16:58 Arm band placed on. jd3 17:01 Alessandro Fitzgerald DO is Attending Physician. ms3 17:07 SARS-COV-2 RT PCR (Document "Date of Onset" if Symptomatic) Sent. mb7 17:07 Flu Sent. mb7 17:53 SARS-COV-2 RT PCR (Document "Date of Onset" if Symptomatic) Sent. mb7 17:53 Flu Sent. mb7 18:57 CXR XRAY In Process Unspecified. EDMS 19:22 Attending Physician role handed off by Alessandro Fitzgerald DO ms3 19:22 Rupesh Zimmer MD is Attending Physician. ms3 20:45 Patient has correct armband on for positive identification. lp1 20:45 No provider procedures requiring assistance completed. Patient did not have IV access lp1 during this emergency room visit. Administered Medications: 17:52 Drug: Ibuprofen 400 mg Route: PO; ww 20:50 Follow up: Response: No adverse reaction lp1 Medication: 20:45 VIS not applicable for this client. lp1 Outcome: 20:25 Discharge ordered by . kdr 20:54 Discharged to home ambulatory. lp1 20:54 Condition: good 20:54 Discharge instructions given to patient, Instructed on discharge instructions, follow up and referral plans. Demonstrated understanding of instructions, follow-up care. 20:54 Patient left the ED. lp1 Signatures: Dispatcher [employer] EDMS Rupesh Zimmer MD MD kdr Pena, Laura, RN RN lp1 Leidy Ba am2 Tamir Carmona RN RN jd3 Alessandro Fitzgerald, DO VILLEGAS ms3 Geneva Alonso mb7 Noa Chacon RN RN ww Corrections: (The following items were deleted from the chart) 23:02 20:45 Respiratory: Respiratory effort is even, unlabored, lp1 lp1
[2022-01-25 20:59] VITALS: BP 99/69; TEMP 98.8; O2SAT 99
== END 2022-01-25 20:54 | disposition home or self-care (01) ==
LOC: ER 16:40
DX: U07.1 COVID-19 (principal)
CPT/HCPCS: 71045; 87804; 99283; U0003

== ENCOUNTER → 2023-09-11 | Emergency (ER) | payer SELFPAY ==
[~2023-09-11] MED LIST: ALBUTEROL 2.5 MG/3 ML NEB SOL ONE; BENZONATATE 100 MG CAP PO ONE; IPRATROPIUM BROM 0.5MG/2.5ML ONE
[2023-09-11 12:51] LABS: SARS-CoV-2 Antigen Rapid Res Negative (Negative)
--- NOTE | 2023-09-11 13:02 | RAD REPORT ---
[facility] CLINICAL HISTORY: Chest pain;Cough COMPARISON: Chest Single View dated 01/25/2022 TECHNIQUE: Portable AP view of the chest. FINDINGS: The lungs are clear. No pneumothorax or effusion. The cardiomediastinal contours are unre markable. IMPRESSION: No acute cardiopulmonary process.
--- NOTE | 2023-09-11 13:05 | ER ---
Nurse's Notes [facility] Name: Miguelina Michel Age: 43 yrs Sex: Female : 1980 Arrival Date: 09/11/2023 Time: 11:20 Bed 4 Private MD: Diagnosis: Influenza due to identified novel influenza A virus Presentation: 09/11 12:00 Chief complaint: Patient states: FLU LIKE SYMPTOMS. Coronavirus screen: Client denies db travel out of the [place] in the last 14 days. At this time, the client does not indicate any symptoms associated with coronavirus-19. Ebola Screen: Patient negative for fever greater than or equal to 101.5 degrees Fahrenheit, and additional compatible Ebola Virus Disease symptoms Patient denies exposure to infectious person. Patient denies travel to an Ebola-affected area in the 21 days before illness onset. No symptoms or risks identified at this time. Initial Sepsis Screen: Does the patient meet any 2 criteria? No. Patient's initial sepsis screen is negative. Does the patient have a suspected source of infection? No. Patient's initial sepsis screen is negative. Risk Assessment: Do you want to hurt yourself or someone else? Patient reports no desire to harm self or others. Onset of symptoms was September 11, 2023. 12:00 Method Of Arrival: Ambulatory db 12:00 Acuity: TIM 3 db Triage Assessment: 12:00 General: Appears in no apparent distress. uncomfortable, Behavior is calm, cooperative. db Pain: Complains of pain in chest. Historical: - Allergies: 12:43 No Known Allergies; db - PSHx: 12:43 Ligation of fallopian tube; db - Immunization history:: Adult Immunizations unknown. - Social history:: Smoking status: unknown. Screenin:43 [facility] ED Fall Risk Assessment (Adult) History of falling in the last 3 months, db including since admission No falls in past 3 months (0 pts) Altered Elimination No (0 pt). [facility] ED Fall Risk Assessment (Adult) Score/Fall Risk Level 0 - 2 = Low Risk Oriented to surroundings, Maintained a safe environment. Abuse screen: Denies threats or abuse. Denies injuries from another. Nutritional screening: No deficits noted. Tuberculosis screening: No symptoms or risk factors identified. Assessment: 12:00 Reassessment: Patient appears in no apparent distress at this time. Patient and/or db family updated on plan of care and expected duration. Pain level reassessed. Patient is alert, oriented x 3, equal unlabored respirations, skin warm/dry/pink. General: Appears in no apparent distress. comfortable, Behavior is calm, cooperative. Pain: Complains of pain in chest Pain does not radiate. Pain began gradually. Cardiovascular: Capillary refill < 3 seconds Patient's skin is warm and dry. Respiratory: Reports cough that is Airway is patent Respiratory effort is even, unlabored, Respiratory pattern is regular, symmetrical. 13:49 Reassessment: Patient appears in no apparent distress at this time. Patient and/or db family updated on plan of care and expected duration. Pain level reassessed. Patient is alert, oriented x 3, equal unlabored respirations, skin warm/dry/pink. 13:49 Reassessment: Patient appears in no apparent distress at this time. Patient and/or db family updated on plan of care and expected duration. Pain level reassessed. Patient is alert, oriented x 3, equal unlabored respirations, skin warm/dry/pink. Vital Signs: 11:42 BP 128 / 84; Pulse 90; Resp 18; Temp 98.9(O); Pulse Ox 99% on R/A; Weight 68.04 kg; em1 Height 5 ft. 0 in. ; Pain 9/10; 12:30 BP 127 / 78; Pulse 96; Resp 18; Pulse Ox 98% on R/A; db 13:30 BP 101 / 65; Pulse 98; Resp 18; Pulse Ox 100% on R/A; db 11:42 Body Mass Index 29.29 (68.04 kg, 152.4 cm) em1 11:42 Pain Scale: Adult em1 ED Course: 11:29 Patient arrived in ED. im 11:32 [facility] jh7 11:32 Mello Zimmerman MD is Attending Physician. jh7 11:41 Yenny Patton, OMID is Primary Nurse. db 12:00 Arm band placed on Patient placed in an exam room. db 12:19 EKG done, COVID swab sent to lab. Flu and/or RSV swab sent to lab. Patient maintains db SpO2 saturation greater than 95% on room air. 12:31 XRAY Chest (1 view) In Process Unspecified. EDMS 12:43 No provider procedures requiring assistance completed. db 12:43 Patient has correct armband on for positive identification. Bed in low position. Call db light in reach. Side rails up X 1. Pulse ox on. NIBP on. Warm blanket given. 13:51 Triage completed. db 13:51 Patient did not have IV access during this emergency room visit. db 13:51 Provided Education on: FLU. db Administered Medications: 12:15 Drug: DuoNeb Nebulize (2.5 mg - 0.5 mg) 3 ml Nebulizer once Route: Nebulizer; db 13:47 Follow up: Response: No adverse reaction db 13:40 Drug: Tessalon Perle PO 100 mg PO once Route: PO; db 13:47 Follow up: Response: No adverse reaction db Medication: 12:43 VIS not applicable for this client. db Outcome: 13:04 Discharge ordered by MD. tejeda 13:51 Discharged to home ambulatory, with family, db 13:51 Condition: stable 13:51 Discharge instructions given to patient, Instructed on discharge instructions, follow up and referral plans. Prescriptions given X 3, 13:52 Patient left the ED. db Signatures: Dispatcher [employer] EDDavid Badillo em1 Katie Hernandez, MACHINE REPAIR PERSON MACHINE REPAIR PERSON jh7 Yenny Patton, RN RN db Rosy Rao
--- NOTE | 2023-09-11 13:05 | EDPHYS ---
Physician Documentation [facility] Name: Miguelina Michel Age: 43 yrs Sex: Female : 1980 Arrival Date: 09/11/2023 Time: 11:20 Bed 4 Private MD: ED Physician Mello Zimmerman HPI: 09/11 11:32 This 43 yrs old Female presents to ER via Unassigned with complaints of Flu Symptoms, jh7 Chest Pain. 11:32 Onset: The symptoms/episode began/occurred 2 day(s) ago. Associated signs and symptoms: jh7 Pertinent positives: chest pain, congestion, cough, earache, fever, headache, body aches, Pertinent negatives: abdominal pain, shortness of breath, sore throat. no PMH or past surgeries. Historical: - Allergies: 12:43 No Known Allergies; db - PSHx: 12:43 Ligation of fallopian tube; db - Immunization history:: Adult Immunizations unknown. - Social history:: Smoking status: unknown. ROS: 11:32 Eyes: Negative for injury, pain, redness, and discharge, Neck: Negative for injury, jh7 pain, and swelling, Abdomen/GI: Negative for abdominal pain, nausea, vomiting, diarrhea, and constipation, Back: Negative for injury and pain, MS/Extremity: Negative for injury and deformity, Skin: Negative for injury, rash, and discoloration, Neuro: Negative for headache, weakness, numbness, tingling, and seizure, 11:32 Constitutional: Positive for body aches, fever, malaise, 11:32 ENT: Positive for ear pain, 11:32 Cardiovascular: Positive for chest pain, with cough, 11:32 Respiratory: Positive for cough, Negative for shortness of breath, wheezing, 11:32 All other systems are negative, Exam: 11:32 Constitutional: This is a well developed, well nourished patient who is awake, alert, jh7 and in no acute distress. Head/Face: Normocephalic, atraumatic. ENT: Nares patent. No nasal discharge, no septal abnormalities noted. Tympanic membranes are normal and external auditory canals are clear. Oropharynx with no redness, swelling, or masses, exudates, or evidence of obstruction, uvula midline. Mucous membranes moist. Neck: Trachea midline, no thyromegaly or masses palpated, and no cervical lymphadenopathy. Supple, full range of motion without nuchal rigidity, or vertebral point tenderness. No Meningismus. Cardiovascular: Regular rate and rhythm with a normal S1 and S2. No gallops, murmurs, or rubs. Normal PMI, no JVD. No pulse deficits. Abdomen/GI: Soft, non-tender, with normal bowel sounds. No distension or tympany. No guarding or rebound. No evidence of tenderness throughout. Back: No spinal tenderness. No costovertebral tenderness. Full range of motion. Skin: Warm, dry with normal turgor. Normal color with no rashes, no lesions, and no evidence of cellulitis. MS/ Extremity: Pulses equal, no cyanosis. Neurovascular intact. Full, normal range of motion. Neuro: Awake and alert, GCS 15, oriented to person, place, time, and situation. Motor strength 5/5 in all extremities. Sensory grossly intact. Normal gait. 11:32 Respiratory: the patient does not display signs of respiratory distress, Respirations: normal, Breath sounds: are clear throughout, Respiratory rate: 18 moist, productive cough noted on exam, Vital Signs: 11:42 BP 128 / 84; Pulse 90; Resp 18; Temp 98.9(O); Pulse Ox 99% on R/A; Weight 68.04 kg; em1 Height 5 ft. 0 in. ; Pain 9/10; 12:30 BP 127 / 78; Pulse 96; Resp 18; Pulse Ox 98% on R/A; db 13:30 BP 101 / 65; Pulse 98; Resp 18; Pulse Ox 100% on R/A; db 11:42 Body Mass Index 29.29 (68.04 kg, 152.4 cm) em1 11:42 Pain Scale: Adult em1 MDM: 11:32 Patient medically screened. [facility] 13:10 Differential diagnosis: viral Infection, bacterial infection, URI, bronchitis, jh7 pneumonia. Data reviewed: vital signs, nurses notes, lab test result(s), EKG, radiologic studies, plain films. I considered the following discharge prescriptions or medication management in the emergency department Medications were administered in the Emergency Department. See MAR. Independent interpretation of the following test(s) in the Emergency Department X-Ray: My interpretation is no pneumonia. Counseling: I had a detailed discussion with the patient and/or guardian regarding the historical points, exam findings, and any diagnostic results supporting the discharge/admit diagnosis, to return to the emergency department if symptoms worsen or persist or if there are any questions or concerns that arise at home. Response to treatment: the patient's symptoms have mildly improved after treatment. 09/11 11:56 Order name: Flu; Complete Time: 12:59 [facility] 09/11 11:56 Order name: SARS RAPID; Complete Time: 12:54 [facility] 09/11 11:56 Order name: XRAY Chest (1 view); Complete Time: 13:04 [facility] 09/11 11:56 Order name: EKG - Nurse/Tech; Complete Time: 12:24 [facility] EC:19 Rate is 83 beats/min. Rhythm is regular. QRS [place] is Normal. [place] interval is normal at [facility] 140 msec. QRS interval is normal at 70 msec. QT interval is normal at 364 msec. No Q waves. T waves are Normal. No ST changes noted. Clinical impression: Normal ECG. Administered Medications: 12:15 Drug: DuoNeb Nebulize (2.5 mg - 0.5 mg) 3 ml Nebulizer once Route: Nebulizer; db 13:47 Follow up: Response: No adverse reaction db 13:40 Drug: Tessalon Perle PO 100 mg PO once Route: PO; db 13:47 Follow up: Response: No adverse reaction db Disposition Summary: 09/11/23 13:04 Discharge Ordered Notes: Location: Home [facility] Problem: new [facility] Symptoms: have improved [facility] Condition: Stable [facility] Diagnosis - Influenza due to identified novel influenza A virus [facility] Followup: [facility] - With: Private Physician - When: 2 - 3 days - Reason: Recheck today's complaints Discharge Instructions: - Discharge Summary Sheet [facility] - Influenza, Adult [facility] Forms: - Work release form eb - Medication Reconciliation Form [facility] - Thank You Letter [facility] - Patient Portal Instructions [facility] - Leadership Thank You Letter [facility] Prescriptions: - albuterol sulfate 90 mcg/actuation Inhalation HFA Aerosol Inhaler - inhale 1 puff INHALATION route every 4-6 hours As needed as needed for [facility] shortness of breath or wheezing; 1 Each; Refills: 0, Product Selection Permitted - Tessalon Perles 100 mg Oral Capsule - take 1 capsule ORAL route every 8 hours As needed; 15 capsule; Refills: 0, jh7 Product Selection Permitted - Tamiflu 75 mg Oral capsule - take 1 tablet ORAL route every 12 hours for 5 days; 10 capsule; Refills: 0, jh7 Product Selection Permitted Signatures: Dispatcher Melanyst Katie Soto, TABLET MACHINE OPERATOR TABLET MACHINE OPERATOR 7 Yenny Patton, RN RN db
[2023-09-11 14:05] VITALS: TEMP 98.9
[2023-09-11 14:19] VITALS: BP 101/65; O2SAT 100
--- NOTE | 2023-09-12 12:22 | EKG ---
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
== END ==
LOC: ER 11:20
DX: J10.1 Influenza due to other identified influenza virus with other respiratory manifestations (principal); Z11.52 Encounter for screening for COVID-19
CPT/HCPCS: 36415; 71045; 87804; 87811; 93005; 94640; 99285; J7613; J7644